=== PATIENT | female | born 1940 | race African-American/Black ===

== ENCOUNTER 2017-03-24 05:33 | Inpatient (IN) ==
[2017-03-17 11:29] LABS: Basophils % 0.7 % (0.0-0.8); Eosinophils # 0.2 10*3/uL (0.0-0.87); Eosinophils % 3.6 % (0.00-10.9); Hematocrit 40.8 VOL% (35.7-47.0); Hemoglobin 13.3 GM/DL (12.0-16.0); Immature Granulocytes % 0.4 %; Immature Granulocytes Absolute 0.02 #; Lymphocytes # 1.9 10*3/uL (1.4-4.0); Lymphocytes % 33.2 % (21.3-54.2); Mean Corpuscular HGB Conc 32.6 GM/DL (32-36); Mean Corpuscular Hemoglobin 27 PG (27-34); Mean Corpuscular Volume 82.8 FL (87-102); Monocytes # 0.4 10*3/uL (0.11-0.8); Monocytes % 7.9 % (1.7-12.7); Neutrophils % 54.2 % (38.7-73.9); Platelet Count 281 T/CUMM (130-400); Red Blood Count 4.93 MC/CUMM (3.8-5.5); Red Cell Distribution Width 15.5 % (9.3-17.3); White Blood Count 5.6 T/CUMM (4-12)
[2017-03-17 11:30] LABS: Apearance,Urine CLEAR (Clear); Bilirubin,Urine Negative (Negative); Blood, Urine Negative (Negative); Glucose,Urine (UA) Negative (Negative); Ketones,Urine Negative (Negative); Nitrite,Urine Negative (Negative); Protein,Urine Negative; RBC,Urine <1 /HPF (0-4); Urine Color Yellow (Yellow); Urine Specific Gravity 1.016 (1.001-1.035); Urine Urobilinogen < 2.0 EU/DL (0.2-1.0); WBC,Urine <1 /HPF (0-6)
[2017-03-17 11:39] LABS: PT Patient Result 10.7 SECS
[2017-03-17 12:03] LABS: Bilirubin,Total 1.2 MG/DL (0.2-1.0); Calcium 9.2 MG/DL (8.5-10.1); Osmolality,Calculated 282.7 MOS/KG (273-304); Total Protein 8.3 G/DL (6.4-8.3)
[2017-03-18 04:52] LABS: Immunoglobulin A (Chem) 245 MG/DL (70-400); Immunoglobulin G (Chem) 1980 MG/DL (700-1600); Immunoglobulin M (Chem) 66 MG/DL (40-230); Total Protein (Chem) 8.3 G/DL (6.4-8.3)
[2017-03-18 07:13] LABS: Albumin (SPE) 4.7 G/DL (3.2-5.3)
[2017-03-18 07:14] LABS: Albumin (SPE) Rel % 57.4 %; Alpha 1 (SPE) 0.2 G/DL (0.1-0.4); Alpha 1 (SPE) Rel % 2.3 %; Alpha 2 (SPE) 0.7 G/DL (0.4-1.0); Alpha 2 (SPE) Rel % 7.9 %; Beta (SPE) Rel % 12.4 %; Gamma (SPE) 1.7 G/DL (0.7-1.7)
[2017-03-24] MEDS ORDERED: VANCOMYCIN INJ 1,000 MG in SODIUM CHLORIDE 0.9% 250 ML IV ONE (06:00)
[2017-03-24] MEDS ORDERED: ceFAZolin 1,000 MG VIAL ONE (06:04)
[2017-03-24] MEDS ORDERED: VANCOMYCIN 1,000 MG VIAL ONE (06:04)
[2017-03-24] MEDS ORDERED: SODIUM CHLORIDE 0.9% 100 ML IV ONE (06:05)
[2017-03-24] MEDS ORDERED: TRANEXAMIC ACID 1,000 MG/10 ML VIAL IV ONE (06:27)
[2017-03-24] MEDS ORDERED: DIAZEPAM 5 MG TABLET ONE (06:29)
[2017-03-24] MEDS ORDERED: LACTATED RINGERS 1,000 ML IV SCH (06:30)
[2017-03-24] MEDS ORDERED: FAMOTIDINE 20 MG TABLET ONE (06:30)
[2017-03-24] MEDS ORDERED: FAMOTIDINE 20 MG TABLET PO ONE (06:32)
[2017-03-24] MEDS ORDERED: DIAZEPAM 5 MG TABLET PO ONE (06:32)
[2017-03-24] MEDS ORDERED: BUPIVACAINE 0.5% 50 ML VIAL ONE (06:36)
[2017-03-24] MEDS ORDERED: EPINEPHrine 1 MG/ML VIAL ONE (06:36)
[2017-03-24] MEDS ORDERED: methylPREDNISolone SOD SUC 125 MG/2 ML VIAL ONE (06:36)
[2017-03-24] MEDS ORDERED: MORPHINE 10 MG/1 ML VIAL ONE (06:36)
[2017-03-24] MEDS ORDERED: PROPOFOL 200 MG/20 ML VIAL IV ONE (07:01)
[2017-03-24] MEDS ORDERED: LIDOCAINE 1% 5 ML VIAL ONE (07:01)
[2017-03-24] MEDS ORDERED: ONDANSETRON 4 MG/2 ML VIAL ONE (07:01)
[2017-03-24] MEDS ORDERED: ZALEPLON 5 MG CAPSULE PO PRN (08:30)
[2017-03-24] MEDS ORDERED: MORPHINE 2 MG/1 ML SYRINGE IV PRN (08:30)
[2017-03-24] MEDS ORDERED: ONDANSETRON 4 MG/2 ML VIAL IV PRN (08:30)
[2017-03-24] MEDS ORDERED: MAGNESIUM HYDROXIDE SUSP 30 ML UDCUP PO PRN (08:30)
[2017-03-24] MEDS ORDERED: diphenhydrAMINE CAP 25 MG CAPSULE PO PRN (08:30)
[2017-03-24] MEDS ORDERED: ROPIVACAINE 0.5% 30 ML VIAL ONE (08:42)
[2017-03-24] MEDS ORDERED: fentaNYL 100 MCG/2 ML VIAL ONE (08:45)
[2017-03-24] MEDS ORDERED: PROMETHAZINE 25 MG/1 ML VIAL ONE (08:45)
[2017-03-24] MEDS ORDERED: MIDAZOLAM 2 MG/2 ML VIAL ONE (08:45)
[2017-03-24] MEDS ORDERED: ACETAMINOPHEN 1,000 MG/100 ML VIAL IV ONE (08:45)
[2017-03-24] MEDS: SODIUM CHLORIDE 0.9% 1,000 ML IV SCH ×3 (09:13→20:40)
--- NOTE | 2017-03-24 09:31 | XRay Report ---
XR knee 2V RT Indication: Joint replacement (right knee) Comparison: None Technique: Frontal and lateral views of the right knee Findings: Status post total right knee arthroplasty. No evidence of immediate hardware failure. Superficial skin dominik and surgical drain/s overlie the knee. Subcutaneous and joint space air noted which is likely postoperative. IMPRESSION: Status post total right knee arthroplasty. PROCEDURE INTERPRETED AT [facility] DEPARTMENT OF RADIOLOGY Final Report Signed by: Dr Rommel Meeks
[2017-03-24] MEDS: DOCUSATE SODIUM 100 MG CAPSULE PO SCH ×2 (10:10→21:49)
[2017-03-24] MEDS: TRIAMTERENE/HCTZ 37.5-25 MG CAPSULE PO SCH (10:10)
[2017-03-24] MEDS: FAMOTIDINE 20 MG TABLET PO SCH ×2 (10:10→21:50)
--- NOTE | 2017-03-24 10:16 | Pulmonology Consult Note ---
Assessment and Plan (1) Postoperative right total knee replaceme Status: Acute Assessment and plan: Not having any pain at this point. She is aware that she will need to ambulate early and often. Current Visit: Yes (2) Mild intermittent asthma Status: Acute Assessment and plan: No flareups. Not wheezing. Can use albuterol as needed. Current Visit: Yes (3) Degenerative arthritis Status: Acute Assessment and plan: Chronically on nonsteroidal anti-inflammatory drugs. Current Visit: Yes (4) Essential hypertension Status: Acute Assessment and plan: Blood pressure acceptable at 150/80. She is only on Dyazide for hypertension. Current Visit: Yes History of Present Illness Chief complaint: Postop right total knee replacement History of present illness: Ms. Garcia is a 76 year old female is normally followed by Dr. Hagan in the office. Dr. Hagan saw the patient about a week ago for preoperative clearance. Everything looked good. She has mild intermittent asthma and hypertension. No recent respiratory infection. She was taken to surgery earlier today and had the right knee replacement. At the present time she is responsive not having any pain. She denies any shortness of breath. Home Medications Medication Instructions Recorded Confirmed Type Acetaminophen Tab [Tylenol Tab] 500 mg PO BID PRN 03/17/17 03/24/17 History Albuterol Sulfate [Ventolin HFA] 2 puffs INH Q6H PRN 03/17/17 03/24/17 History Naproxen [Naproxen Tab] 500 mg PO BID 03/17/17 03/24/17 History Ranitidine Tab [Zantac Tab] 150 mg PO BID PRN 03/17/17 03/24/17 History Triamterene/Hydrochlorothiazid 1 tablet PO DAILY 03/17/17 03/24/17 History [Triamterene-Hctz 37.5-25 mg Cp] Allergies Allergy/AdvReac Type Severity Reaction Status Date / Time codeine Allergy Severe Vomiting Verified 03/24/17 06:12 12 point system: reviewed and no additional remarkable complaints except as stated - Constitutional Constitutional: Present: headache(s) - EENT Nose, mouth and throat: Present: nasal congestion Exam (Pulmonay) H&P - Constitutional Vitals: Period Temp Pulse Resp BP Sys/Novoa Pulse Ox Last 24 Hr 97.1 F-98.1 F 71-98 12-20 119-150/70-99 94-98 Exam: Vital signs normal. Blood pressure 150/80. Pupils react to light. Throat is clear. Neck supple no bruits. Chest is clear equal breath sounds. Heart normal rate and rhythm no murmurs no rubs no gallops. Abdomen soft nontender no masses. Bowel sounds present. Extremities no clubbing cyanosis edema. Calves nontender. Brace on right knee. Medical,Surgical,& Family Hx - Medical History Cardio: History of: Hypertension Neurology: No history of: Seizures HEENT: History of: Eye Problem (glasses), Dental Problems (upper denture) Respiratory: History of: Asthma Musculoskeletal: History of: Musculoskeletal Problems (oa) - Surgical History HEENT Surgeries: Surgical HX of: Eye Surgery (cataracts) Abdominal Surgeries: Surgical HX of: Cholecystectomy Reproductive Surgeries: Surgical HX of;: Section, Tubal Ligation Orthopedic Surgeries: Surgical HX of;: Total Knee Replacement (right knee) - Family History Family History: Reports;: Family Cancer (brother), Family Diabetes (brother), Family Hypertension (siblings), Family Stroke (brother) - Social History Smoking Status: Never smoker Frequency of Alcohol Use: Rarely Type of Drug Use: None Results - Labs CBC & BMP: 03/17/17 11:20 03/17/17 11:20 Lab Results: I have reviewed the past 24 hour labs
[2017-03-24] MEDS: ACETAMINOPHEN 500 MG TABLET PO SCH ×2 (11:55→18:11)
[2017-03-24] MEDS: KETOROLAC 15 MG/1 ML VIAL IV SCH ×2 (11:56→18:11)
[2017-03-24] MEDS ORDERED: ALBUTEROL 2.5 MG/3 ML NEB RESP TX PRN (13:00)
[2017-03-24] MEDS: ceFAZolin 2,000 MG in PREMIX 1 EACH IV SCH ×2 (15:21→23:41)
--- NOTE | 2017-03-24 17:10 | Orthopedic Progress Note ---
Assessment and Plan (1) Postoperative right total knee replaceme Status: Acute Assessment and plan: Routine perioperative antibiotics DVT prophylaxis Therapy twice daily beginning tomorrow Discharge planning Current Visit: Yes Orthopedics - Subjective Interval history: Patient is sitting at the bedside status post right total knee arthroplasty. She has no complaints, her pain is controlled. On exam, her dressing is clean and dry, her Hemovac is in place, she can wiggle her toes, she has 1+ dorsalis pedis pulse. Exam - Constitutional Vitals: Period Temp Pulse Resp BP Sys/Novoa Pulse Ox Last 24 Hr 97.1 F-98.9 F 67-98 12-20 119-153/70-99 91-98 Results - Labs CBC & BMP: 03/17/17 11:20 03/17/17 11:20
[2017-03-25] MEDS: ACETAMINOPHEN 500 MG TABLET PO SCH ×2 (01:02→07:10)
[2017-03-25] MEDS: KETOROLAC 15 MG/1 ML VIAL IV SCH ×2 (01:05→07:10)
[2017-03-25] MEDS: SODIUM CHLORIDE 0.9% 1,000 ML IV SCH (04:12)
[2017-03-25 06:25] LABS: Basophils % 0.3 % (0.0-0.8); Hematocrit 31.6 VOL% (35.7-47.0); Hemoglobin 10.7 GM/DL (12.0-16.0); Immature Granulocytes % 0.6 %; Immature Granulocytes Absolute 0.05 #; Lymphocytes % 11.5 % (21.3-54.2); Mean Corpuscular HGB Conc 33.9 GM/DL (32-36); Mean Corpuscular Hemoglobin 28 PG (27-34); Mean Corpuscular Volume 82.9 FL (87-102); Mean Platelet Volume 11.2 FL (9.6-12.0); Monocytes # 0.7 10*3/uL (0.11-0.8); Monocytes % 8.2 % (1.7-12.7); Neutrophils % 79.4 % (38.7-73.9); Platelet Count 224 T/CUMM (130-400); Red Blood Count 3.81 MC/CUMM (3.8-5.5); Red Cell Distribution Width 15.4 % (9.3-17.3); White Blood Count 8.8 T/CUMM (4-12)
[2017-03-25 06:54] LABS: Calcium 8.1 MG/DL (8.5-10.1); Potassium 3.7 MMOL/L (3.5-5.1)
[2017-03-25] MEDS: ENOXAPARIN 40 MG/0.4 ML SYRINGE SUBCUT SCH (07:09)
--- NOTE | 2017-03-25 08:08 | Orthopedic Progress Note ---
Assessment and Plan (1) Postoperative right total knee replaceme Status: Acute Assessment and plan: DVT prophylaxis Therapy twice daily Discharge planning Current Visit: Yes Orthopedics - Subjective Interval history: Patient has no complaints this morning, she states she is ready to get out of bed with therapy. On exam dressings clean and dry, she is neurovascularly intact. Exam - Constitutional Vitals: Period Temp Pulse Resp BP Sys/Novoa Pulse Ox Last 24 Hr 97.1 F-98.9 F 67-85 12-20 110-153/70-87 91-98 Results - Labs CBC & BMP: 03/25/17 05:33 03/25/17 05:33
[2017-03-25] MEDS ORDERED: ACETAMINOPHEN 325 MG TABLET PO PRN (08:31)
[2017-03-25] MEDS: DOCUSATE SODIUM 100 MG CAPSULE PO SCH ×2 (09:15→20:40)
[2017-03-25] MEDS: FAMOTIDINE 20 MG TABLET PO SCH ×2 (09:16→20:41)
[2017-03-25] MEDS: TRIAMTERENE/HCTZ 37.5-25 MG CAPSULE PO SCH (09:16)
--- NOTE | 2017-03-25 09:50 | Pulmonology Progress Note ---
Pulmonary - PN: Subj Interval history: This 76-year-old lady had a right total knee replacement yesterday. She has mild intermittent asthma but is not having any problems with that. Her blood pressure is doing well. She ambulated some yesterday and this morning. Exam (Progress Note) - Constitutional Vitals: Period Temp Pulse Resp BP Sys/Novoa Pulse Ox Last 24 Hr 97.1 F-98.9 F 67-85 16-19 110-153/70-87 91-96 Exam: Patient is alert and oriented. Vital signs normal. Pupils react to light. Throat is clear. Neck supple no bruits. Chest is clear. No wheezing. Heart normal rate and rhythm no murmurs. Abdomen soft nontender no masses. Bowel sounds present. Extremities no clubbing cyanosis or edema. Calves nontender. Brace on right knee. Results - Labs CBC & BMP: 03/25/17 05:33 03/25/17 05:33 Lab Results: I have reviewed the past 24 hour labs Assessment and Plan (1) Postoperative right total knee replaceme Status: Acute Assessment and plan: Not having any pain at this point. She is aware that she will need to ambulate early and often. 03/25/2017 patient is ambulating with physical therapy. Pain is managed well. Current Visit: Yes (2) Mild intermittent asthma Status: Acute Assessment and plan: No flareups. Not wheezing. Can use albuterol as needed. 03/25/2017 just on albuterol as needed. No active bronchospasm. Current Visit: Yes (3) Degenerative arthritis Status: Acute Assessment and plan: Chronically on nonsteroidal anti-inflammatory drugs. 03/25/2017 continuing nonsteroidal anti-inflammatory drugs. Current Visit: Yes (4) Essential hypertension Status: Acute Assessment and plan: Blood pressure acceptable at 150/80. She is only on Dyazide for hypertension. 03/25/2017 systolic blood pressure around 120 on Dyazide. Current Visit: Yes
--- NOTE | 2017-03-25 11:19 | Pathology Report from [facility] ---
[facility] [place] ACCESSION # : [id number] PATIENT NAME : Deborah Rosen ORDERING DR : Elias Luke MD CLINICAL HX: RT knee osteoarthritis POST-OP DX: Same SPECIMEN INFO: RT knee bone & tissue GROSS DESCRIPTION: Received in formalin labeled DEBORAH ROSEN is an aggregate of bone, soft tissue and cartilage measuring 13.0 x 2.5 cm. The articular surfaces are focally degenerative with areas of subchondral eburnation seen. Also seen is a white loose body measuring 1.3 x 1.0 cm. Java Project Manager sections are submitted in one cassette. DIAGNOSIS FOR DEBORAH ROSEN: Fragments of right knee joint showing changes of degenerative joint disease/ osteoarthritis.Loose body. COLLECTED DATE: 03/24/2017 [facility] REPORT DATE: 03/25/2017 ELECTRONICALLY SIGNED BY: Fitz Villarreal M.D. 03/25/2017 - 9:32:10 [facility] SYSTEMDonald
[2017-03-25] MEDS ORDERED: CELECOXIB 200 MG CAPSULE PO SCH (18:00)
[2017-03-26 05:17] LABS: Basophils # 0.1 10*3/uL (0.0-0.2); Basophils % 0.8 % (0.0-0.8); Eosinophils # 0.3 10*3/uL (0.0-0.87); Eosinophils % 3.9 % (0.00-10.9); Hematocrit 30.2 VOL% (35.7-47.0); Hemoglobin 9.9 GM/DL (12.0-16.0); Immature Granulocytes % 0.4 %; Immature Granulocytes Absolute 0.03 #; Lymphocytes # 1.4 10*3/uL (1.4-4.0); Lymphocytes % 18.7 % (21.3-54.2); Mean Corpuscular HGB Conc 32.8 GM/DL (32-36); Mean Corpuscular Hemoglobin 27 PG (27-34); Mean Corpuscular Volume 83.4 FL (87-102); Mean Platelet Volume 11.3 FL (9.6-12.0); Monocytes # 0.7 10*3/uL (0.11-0.8); Neutrophils # 5.1 10*3/uL (1.4-7.4); Neutrophils % 67.2 % (38.7-73.9); Platelet Count 212 T/CUMM (130-400); Red Blood Count 3.62 MC/CUMM (3.8-5.5); Red Cell Distribution Width 15.5 % (9.3-17.3); White Blood Count 7.6 T/CUMM (4-12)
[2017-03-26] MEDS: ENOXAPARIN 40 MG/0.4 ML SYRINGE SUBCUT SCH (06:01)
--- NOTE | 2017-03-26 07:14 | Discharge Summary ---
Hospital Course - Hospital Course Hospital Course: 76-year-old female admitted hospital following total knee arthroplasty. She tolerated the procedure well and was transferred to the floor in stable condition postoperatively. She she received routine antibiotics and thromboprophylaxis. She was seen by physical therapy twice daily. When she was ambulating safely she was subsequently discharged home. Time of discharge her wounds clean and dry she is neurovascularly intact. Diagnosis - Discharge Diagnosis (1) Postoperative right total knee replaceme Status: Acute Specialty Discharge - Follow Up or Referrals Follow up with: Elisa Luke MD [Physician] - Discharge Plan - Discharge Data Disposition: Home Health Service Condition at Discharge: Stable Discharge Diet: advance to your usual diet Activity: ambulate only with your walker Hygiene: may shower Weight Bearing at Discharge: weight bear as tolerated Driving: not until seen by doctor Contact your physician if you experience:: fever over 101, Difficulty voiding, Redness or swelling, Nausea/Vomiting, Shortness of breath, Bleeding, pain uncontrolled by pain medications Wound / Dressing Care Instructions: Daily dressing change. Okay to shower, no tub soaks. Kylah out 04/07/2017 - Discharge Medications New Docusate Sodium Cap [Colace Cap] 100 mg PO BID #30 capsule HYDROcodone/ACETAMIN 7.5-325 [Wray 7.5-325] 1 - 2 tablet PO Q4H PRN #60 tablet PRN Reason: Pain Moderate (4-7) Aspirin EC Tab 325 mg PO DAILY #30 tablet Continue Triamterene/Hydrochlorothiazid [Triamterene-Hctz 37.5-25 mg Cp] 1 tablet PO DAILY Albuterol Sulfate [Ventolin HFA] 2 puffs INH Q6H PRN PRN Reason: Shortness Of Breath/Wheezing Naproxen [Naproxen Tab] 500 mg PO BID Acetaminophen Tab [Tylenol Tab] 500 mg PO BID PRN PRN Reason: Pain Ranitidine Tab [Zantac Tab] 150 mg PO BID PRN PRN Reason: Reflux - Follow Up or Referral Follow Up: Elias Luke MD [Physician] - (2-3 weeks) - Forms/Instructions Instructions: Total Knee Replacement (DC) Additional Discharge Instructions: Weight-bear as tolerated, total knee protocol Exam - Constitutional Vitals: Period Temp Pulse Resp BP Sys/Novoa Pulse Ox Last 24 Hr 97.1 F-99.0 F 77-92 16-18 112-141/65-74 89-94 Discharge Results Procedures and tests throughout hospitalization: Pending Orders 03/17/17 11:20 Total Protein 24 Hr Urine Routine 03/27/17 04:00 Comp Blood Count Auto Diff IN AM Labs on day of discharge: Labs from last 24 hours 03/26/17 04:52 WBC 7.6 RBC 3.62 L Hgb 9.9 L Hct 30.2 L MCV 83.4 L MCH 27 MCHC 32.8 RDW 15.5 Plt Count 212 MPV 11.3 Neut % (Auto) 67.2 Lymph % (Auto) 18.7 L [place] % (Auto) 9.0 Eos % (Auto) 3.9 Baso % (Auto) 0.8 Neut # (Auto) 5.1 Lymph # (Auto) 1.4 [place] # (Auto) 0.7 Eos # (Auto) 0.3 Baso # (Auto) 0.1 Immature Gran % 0.4 Nucleated RBC % 0.0 Immature Gran # 0.03 Nucleated RBCs # 0.00 DS: Provider Date of admission: 03/24/17 05:33 Primary care physician: Klely Hagan MD Attending physician on admission: Elias Luke MD Consults: 03/24/17 08:30 Consult to Case Mgmt/Social Srvs [CONS] Routine Reason for Case Mgmt/Social Srvs: Rehab Home Health Equipment Consult Comment: Bedside [place], Wild rm 324 before D/C'd home; Pt 5ft 6in 207lbs. Consult to Occupational Therapy [CONS] Routine Reason for Occupational Therapy: Evaluate and Treat Start Therapy: Tomorrow Consult Comment: ADL's Consult to Physical Therapy [CONS] Routine Reason for Physical Therapy: Evaluate and Treat Gait Training Start Therapy: Today 03/24/17 08:31 Consult to Physician [CONS] Routine Comment: eugene solis Consulting Provider: David Rodriguez Consulting Provider Notified: Yes When should Consulting Provider be notified: Now Person Notified: bill crockett Date Notified: 03/24/17 Time Notified: 09:46 03/24/17 09:55 Consult to Pastoral Services [CONS] Routine Comment: Pastoral Screen: Request Wire Puller Visit Pastoral Screen Source of Request: Patient 03/25/17 08:18 Consult to Physical Therapy [CONS] Routine Reason for Physical Therapy: Other Consult Comment: Please bring Pt a Standard Walker for home before D/C home. Discharging clinician: Elias Luke MD
--- NOTE | 2017-03-26 09:15 | Pulmonology Progress Note ---
Pulmonary - PN: Subj Interval history: This 76-year-old lady had a right total knee replacement yesterday. She has mild intermittent asthma but is not having any problems with that. Her blood pressure is doing well. She ambulated some yesterday and this morning. 03/26/2017 patient in physical therapy. She did have some nausea this morning after getting pain medications. Blood pressure has been well controlled. She is ready for discharge for physical therapy at home. Exam (Progress Note) - Constitutional Vitals: Period Temp Pulse Resp BP Sys/Novoa Pulse Ox Last 24 Hr 96.8 F-99.0 F 77-92 16-18 105-141/63-74 89-96 Exam: Patient is alert and oriented. Vital signs normal. Pupils react to light. Throat is clear. Neck supple no bruits. Chest is clear. No wheezing. Heart normal rate and rhythm no murmurs. Abdomen soft nontender no masses. Bowel sounds present. Extremities no clubbing cyanosis or edema. Calves nontender. Brace on right knee. Results - Labs CBC & BMP: 03/26/17 04:52 03/25/17 05:33 Lab Results: I have reviewed the past 24 hour labs Assessment and Plan (1) Postoperative right total knee replaceme Status: Acute Assessment and plan: Not having any pain at this point. She is aware that she will need to ambulate early and often. 03/25/2017 patient is ambulating with physical therapy. Pain is managed well. 03/26/2017 doing well with physical therapy. She is having some pain and nausea is probably resulting from the pain medications. Current Visit: Yes (2) Mild intermittent asthma Status: Acute Assessment and plan: No flareups. Not wheezing. Can use albuterol as needed. 03/25/2017 just on albuterol as needed. No active bronchospasm. 03/26/2017 no bronchospasm. Current Visit: Yes (3) Degenerative arthritis Status: Acute Assessment and plan: Chronically on nonsteroidal anti-inflammatory drugs. 03/25/2017 continuing nonsteroidal anti-inflammatory drugs. Current Visit: Yes (4) Essential hypertension Status: Acute Assessment and plan: Blood pressure acceptable at 150/80. She is only on Dyazide for hypertension. 03/25/2017 systolic blood pressure around 120 on Dyazide. 03/26/2017 blood pressure well controlled. Stay on Dyazide. Current Visit: Yes Specialty Discharge - Follow Up or Referrals Follow up with: Elias Luke MD [Physician] - (2-3 weeks)
[2017-03-26 12:02] VITALS: BP 131/81
[2017-03-26] MEDS: DOCUSATE SODIUM 100 MG CAPSULE PO SCH (12:19)
[2017-03-26] MEDS: TRIAMTERENE/HCTZ 37.5-25 MG CAPSULE PO SCH (12:19)
[2017-03-26] MEDS: FAMOTIDINE 20 MG TABLET PO SCH (12:19)
== END 2017-03-26 14:10 | disposition home health service (06) | DRG 470 ==
LOC: N.SDSINP 05:33 → N.3E 09:30
PROVIDERS: ADMIT Orthopaedic Surgery; ATTEND Orthopaedic Surgery

== ENCOUNTER 2018-01-12 05:26 | Inpatient (IN) ==
[2018-01-07 10:15] LABS: Basophils # 0.1 10*3/uL (0.0-0.2); Eosinophils # 0.1 10*3/uL (0.0-0.87); Eosinophils % 2.8 % (0.00-10.9); Hematocrit 38.5 VOL% (35.7-47.0); Hemoglobin 12.2 GM/DL (12.0-16.0); Immature Granulocytes % 0.4 %; Immature Granulocytes Absolute 0.02 #; Lymphocytes # 1.4 10*3/uL (1.4-4.0); Lymphocytes % 27.7 % (21.3-54.2); Mean Corpuscular HGB Conc 31.7 GM/DL (32-36); Mean Corpuscular Hemoglobin 26 PG (27-34); Mean Corpuscular Volume 83.2 FL (87-102); Monocytes # 0.5 10*3/uL (0.11-0.8); Monocytes % 10.1 % (1.7-12.7); Neutrophils # 2.9 10*3/uL (1.4-7.4); Platelet Count 264 T/CUMM (130-400); Red Blood Count 4.63 MC/CUMM (3.8-5.5); Red Cell Distribution Width 16.3 % (9.3-17.3); White Blood Count 4.9 T/CUMM (4-12)
[2018-01-07 10:29] LABS: Apearance,Urine CLEAR (Clear); Bilirubin,Urine Negative (Negative); Blood, Urine Negative (Negative); Glucose,Urine (UA) Negative (Negative); Hyaline Casts,Urine 1 /LPF (0-3); Ketones,Urine Negative (Negative); Mucus,Urine Occasional /LPF (Occasional); Nitrite,Urine Negative (Negative); Protein,Urine Negative; RBC,Urine <1 /HPF (0-4); Urine Color Yellow (Yellow); WBC,Urine <1 /HPF (0-6)
[2018-01-07 10:31] LABS: PT Patient Result 10.4 SECS; Partial Thromboplastin Time 26.7 SECS (0-40)
[2018-01-07 10:45] LABS: Albumin 3.6 G/DL (3.4-5.0); Bilirubin,Total 0.9 MG/DL (0.2-1.0); Calcium 9.3 MG/DL (8.5-10.1); Osmolality,Calculated 286.4 MOS/KG (273-304); Total Protein 7.8 G/DL (6.4-8.3)
[2018-01-12] MEDS ORDERED: IPRATROPIUM 500 MCG/2.5 ML NEB RESP TX ONE (06:00)
[2018-01-12] MEDS ORDERED: ceFAZolin 1,000 MG in SYRINGE 1 EACH IV ONE (06:00)
[2018-01-12] MEDS ORDERED: FAMOTIDINE 20 MG TABLET PO ONE (06:00)
[2018-01-12] MEDS ORDERED: ALBUTEROL/IPRATROPIUM 3 ML NEB RESP TX ONE (06:00)
[2018-01-12] MEDS ORDERED: VANCOMYCIN INJ 1,000 MG in SODIUM CHLORIDE 0.9% 250 ML IV ONE (06:00)
[2018-01-12] MEDS ORDERED: DIAZEPAM 5 MG TABLET PO ONE (06:00)
[2018-01-12] MEDS ORDERED: VANCOMYCIN 1,000 MG VIAL ONE (06:04)
[2018-01-12] MEDS ORDERED: FAMOTIDINE 20 MG TABLET ONE (06:18)
[2018-01-12] MEDS ORDERED: DIAZEPAM 5 MG TABLET ONE (06:18)
[2018-01-12] MEDS ORDERED: SCOPOLAMINE 1.5 MG PATCH TRANSDERM ONE ×2 (06:19→06:32)
[2018-01-12] MEDS ORDERED: TRANEXAMIC ACID 1,000 MG/10 ML VIAL IV ONE ×2 (06:30→06:41)
[2018-01-12] MEDS ORDERED: BACITRACIN OINT 0.9 GM PACK TOP ONE (06:30)
[2018-01-12] MEDS ORDERED: LACTATED RINGERS 1,000 ML IV SCH (07:00)
[2018-01-12] MEDS ORDERED: MAGNESIUM HYDROXIDE SUSP 30 ML UDCUP PO PRN (07:13)
[2018-01-12] MEDS ORDERED: ONDANSETRON 4 MG/2 ML VIAL IV PRN (07:13)
[2018-01-12] MEDS ORDERED: ZALEPLON 5 MG CAPSULE PO PRN (07:13)
[2018-01-12] MEDS ORDERED: diphenhydrAMINE CAP 25 MG CAPSULE PO PRN (07:13)
[2018-01-12] MEDS ORDERED: MORPHINE 2 MG/1 ML SYRINGE IV PRN ×2 (07:13)
[2018-01-12] MEDS ORDERED: oxyCODONE IR 5 MG TABLET PO PRN ×2 (07:13)
[2018-01-12] MEDS ORDERED: KETOROLAC 30 MG/1 ML VIAL IV SCH (07:30)
[2018-01-12] MEDS ORDERED: ROPIVACAINE 0.5% 30 ML VIAL ONE (08:01)
[2018-01-12] MEDS ORDERED: ALBUTEROL 2.5 MG/3 ML NEB RESP TX PRN (08:30)
[2018-01-12] MEDS ORDERED: ONDANSETRON 4 MG/2 ML VIAL ONE ×2 (08:50→08:55)
[2018-01-12] MEDS ORDERED: PROPOFOL 200 MG/20 ML VIAL IV ONE (08:54)
[2018-01-12] MEDS ORDERED: DEXAMETHASONE 10 MG/1 ML VIAL ONE (08:55)
[2018-01-12] MEDS ORDERED: fentaNYL 100 MCG/2 ML VIAL ONE (08:55)
[2018-01-12] MEDS ORDERED: ROCURONIUM 100 MG/10 ML VIAL IV ONE (08:55)
[2018-01-12] MEDS ORDERED: SEVOFLURANE 1 UNIT/15 MINUTE INH ONE (08:55)
[2018-01-12] MEDS ORDERED: GLYCOPYRROLATE 0.4 MG/2 ML VIAL ONE (08:55)
[2018-01-12] MEDS ORDERED: NEOSTIGMINE 10 MG/10 ML VIAL ONE (08:55)
[2018-01-12] MEDS ORDERED: ACETAMINOPHEN 1,000 MG/100 ML VIAL IV ONE (08:55)
[2018-01-12] MEDS ORDERED: HYDROmorphone 2 MG/1 ML VIAL ONE (09:03)
[2018-01-12] MEDS: HYDROmorphone 2 MG/1 ML VIAL IV PRN ×2 (09:05→09:15)
[2018-01-12] MEDS: LACTATED RINGERS 1,000 ML IV SCH ×2 (09:10→17:08)
[2018-01-12] MEDS: FAMOTIDINE 20 MG TABLET PO SCH (10:07)
[2018-01-12] MEDS: TRIAMTERENE/HCTZ 37.5-25 MG CAPSULE PO SCH (10:07)
[2018-01-12] MEDS: DOCUSATE SODIUM 100 MG CAPSULE PO SCH ×2 (10:07→21:49)
[2018-01-12] MEDS: KETOROLAC 30 MG/1 ML VIAL IV SCH ×3 (11:31→23:14)
[2018-01-12] MEDS: ceFAZolin 2,000 MG in PREMIX 1 EACH IV SCH ×2 (11:35→21:42)
[2018-01-12] MEDS ORDERED: PROMETHAZINE 25 MG/1 ML VIAL IM PRN (12:06)
[2018-01-12] MEDS: ACETAMINOPHEN 500 MG TABLET PO SCH ×3 (12:17→23:13)
[2018-01-12] MEDS ORDERED: ceFAZolin 2,000 MG in PREMIX 1 EACH IV SCH (21:30)
[2018-01-13] MEDS ORDERED: FONDAPARINUX 2.5 MG/0.5 ML SYRINGE SUBCUT SCH (01:15)
[2018-01-13] MEDS: LACTATED RINGERS 1,000 ML IV SCH ×2 (02:31→04:08)
[2018-01-13 04:53] LABS: White Blood Count 8.4 T/CUMM (4-12)
[2018-01-13 04:54] LABS: Basophils % 0.2 % (0.0-0.8); Hematocrit 28.8 VOL% (35.7-47.0); Hemoglobin 9.7 GM/DL (12.0-16.0); Immature Granulocytes % 0.6 %; Immature Granulocytes Absolute 0.05 #; Lymphocytes # 1.1 10*3/uL (1.4-4.0); Lymphocytes % 13.3 % (21.3-54.2); Mean Corpuscular HGB Conc 33.7 GM/DL (32-36); Mean Corpuscular Hemoglobin 27 PG (27-34); Mean Corpuscular Volume 80.7 FL (87-102); Mean Platelet Volume 11.1 FL (9.6-12.0); Monocytes # 1.1 10*3/uL (0.11-0.8); Monocytes % 13.1 % (1.7-12.7); Neutrophils # 6.1 10*3/uL (1.4-7.4); Neutrophils % 72.8 % (38.7-73.9); Platelet Count 194 T/CUMM (130-400); Red Blood Count 3.57 MC/CUMM (3.8-5.5); Red Cell Distribution Width 16.3 % (9.3-17.3)
[2018-01-13] MEDS: KETOROLAC 30 MG/1 ML VIAL IV SCH (05:15)
[2018-01-13] MEDS: ACETAMINOPHEN 500 MG TABLET PO SCH (05:15)
[2018-01-13 05:23] LABS: Calcium 8.3 MG/DL (8.5-10.1); Osmolality,Calculated 286.4 MOS/KG (273-304); Potassium 3.8 MMOL/L (3.5-5.1)
[2018-01-13] MEDS: FAMOTIDINE 20 MG TABLET PO SCH (10:58)
[2018-01-13] MEDS: DOCUSATE SODIUM 100 MG CAPSULE PO SCH (11:00)
[2018-01-13] MEDS: TRIAMTERENE/HCTZ 37.5-25 MG CAPSULE PO SCH (11:00)
[2018-01-13 11:38] VITALS: BP 117/71
== END 2018-01-13 12:55 | disposition home health service (06) | DRG 470 ==
LOC: N.OR 05:26 → N.SDSINP 05:27 → N.3E 07:14
PROVIDERS: ADMIT Orthopaedic Surgery; ATTEND Orthopaedic Surgery

== ENCOUNTER 2021-01-14 00:50 | Observation (INO) ==
[2021-01-14] MEDS ORDERED: hydrALAZINE 20 MG/1 ML VIAL IV STA (02:17)
[2021-01-14 02:53] LABS: Basophils # 0.1 10*3/uL (0.0-0.2); Basophils % 0.9 % (0.0-0.8); Eosinophils # 0.1 10*3/uL (0.0-0.87); Eosinophils % 0.9 % (0.00-10.9); Hematocrit 40.8 VOL% (35.7-47.0); Hemoglobin 13.3 GM/DL (12.0-16.0); Immature Granulocytes % 0.4 %; Immature Granulocytes Absolute 0.03 #; Lymphocytes # 2.2 10*3/uL (1.4-4.0); Lymphocytes % 30.4 % (21.3-54.2); Mean Corpuscular HGB Conc 32.6 GM/DL (32-36); Mean Corpuscular Volume 82.3 FL (87-102); Mean Platelet Volume 10.3 FL (9.6-12.0); Monocytes % 9.5 % (1.7-12.7); Neutrophils % 57.9 % (38.7-73.9); Platelet Count 285 T/CUMM (130-400); Red Blood Count 4.96 MC/CUMM (3.8-5.5); Red Cell Distribution Width 18.5 % (9.3-17.3); White Blood Count 7.4 T/CUMM (4-12)
[2021-01-14 03:04] LABS: Alanine Aminotransferase 20 U/L (13-56); Albumin 3.8 G/DL (3.4-5.0); Alkaline Phosphatase 61 U/L (45-117); Aspartate Amino Transferase 16 U/L (0-37); Blood Urea Nitrogen 17 MG/DL (7-18); Carbon Dioxide 26 MMOL/L (21-32); Estimated Glom Filtration Rate 57 ML/MIN; Glucose 108 MG/DL (74-106); Osmolality,Calculated 268.4 MOS/KG (273-304); Potassium 3.7 MMOL/L (3.5-5.1); Sodium 133 MMOL/L (136-145); Troponin I 0.019 NG/ML (0.00-0.045)
[2021-01-14] MEDS ORDERED: ASPIRIN EC 325 MG TABLET PO STA (03:36)
[2021-01-14] MEDS ORDERED: ENOXAPARIN 100 MG/ML SYRINGE SUBCUT STA (03:36)
[2021-01-14] MEDS ORDERED: DEXTROSE 50% 25 GM/50 ML VIAL IV PRN (05:21)
[2021-01-14] MEDS ORDERED: GLUCAGON 1 MG VIAL IM PRN (05:21)
[2021-01-14] MEDS ORDERED: hydrALAZINE 20 MG/1 ML VIAL IV PRN (05:21)
[2021-01-14] MEDS ORDERED: ALBUTEROL 0.63 MG/3 ML NEB RESP TX PRN (05:27)
[2021-01-14 05:33] LABS: Hypochromasia 1+; Microcytosis 1+
[2021-01-14 05:34] LABS: Ovalocytes Few; Platelet Estimate Normal
[2021-01-14] MEDS: ACETAMINOPHEN 325 MG TABLET PO PRN (09:35)
[2021-01-14] MEDS: carvediloL 6.25 MG TABLET PO SCH ×2 (09:35→16:33)
[2021-01-14] MEDS: ASPIRIN EC 81 MG TABLET PO SCH (09:41)
[2021-01-14] MEDS: FERROUS SULFATE 325 MG TABLET PO SCH ×2 (09:42→16:33)
[2021-01-14] MEDS ORDERED: SERTRALINE 25 MG TABLET PO SCH (21:00)
[2021-01-14] MEDS ORDERED: CALCIUM CARBONATE CHEW 500 MG TABLET PO PRN (23:26)
[2021-01-14] MEDS ORDERED: SERTRALINE 25 MG TABLET PO ONE (23:28)
[2021-01-15] MEDS: ACETAMINOPHEN 325 MG TABLET PO PRN (00:41)
[2021-01-15] MEDS: ONDANSETRON 4 MG/2 ML VIAL IV PRN ×2 (02:11→06:15)
[2021-01-15 06:56] LABS: Basophils # 0.1 10*3/uL (0.0-0.2); Basophils % 1.6 % (0.0-0.8); Eosinophils # 0.1 10*3/uL (0.0-0.87); Eosinophils % 1.9 % (0.00-10.9); Hematocrit 42.3 VOL% (35.7-47.0); Hemoglobin 13.9 GM/DL (12.0-16.0); Immature Granulocytes % 0.2 %; Immature Granulocytes Absolute 0.01 #; Lymphocytes % 35.4 % (21.3-54.2); Mean Corpuscular HGB Conc 32.9 GM/DL (32-36); Mean Corpuscular Volume 80.7 FL (87-102); Mean Platelet Volume 10.7 FL (9.6-12.0); Monocytes % 10.2 % (1.7-12.7); Neutrophils % 50.7 % (38.7-73.9); Platelet Count 319 T/CUMM (130-400); Red Blood Count 5.24 MC/CUMM (3.8-5.5); Red Cell Distribution Width 19.2 % (9.3-17.3); White Blood Count 5.7 T/CUMM (4-12)
[2021-01-15 07:24] LABS: Calcium 8.9 MG/DL (8.5-10.1); Osmolality,Calculated 260.8 MOS/KG (273-304); Potassium 3.1 MMOL/L (3.5-5.1); Risk Ratio 3.67; Thyroid Stimulating Hormone 2.27 uIU/ml (0.358-3.74); VLDL CHOLESTEROL 15.8 MG/DL
[2021-01-15] MEDS ORDERED: POTASSIUM CHLORIDE 20 MEQ TABLET PO ONE (08:17)
[2021-01-15] MEDS: ENOXAPARIN 40 MG/0.4 ML SYRINGE SUBCUT SCH (09:05)
[2021-01-15] MEDS: ASPIRIN EC 81 MG TABLET PO SCH (09:05)
[2021-01-15] MEDS ORDERED: carvediloL 6.25 MG TABLET PO ONE (09:13)
[2021-01-15] MEDS: FERROUS SULFATE 325 MG TABLET PO SCH ×2 (09:26→09:38)
[2021-01-15] MEDS: carvediloL 6.25 MG TABLET PO SCH (09:31)
[2021-01-15] MEDS: diphenhydrAMINE CAP 25 MG CAPSULE PO PRN ×2 (09:31→22:08)
[2021-01-15] MEDS ORDERED: carvediloL 12.5 MG TABLET PO SCH (12:00)
[2021-01-15] MEDS: carvediloL 12.5 MG TABLET PO SCH ×2 (15:22→22:06)
[2021-01-15] MEDS ORDERED: SERTRALINE 50 MG TABLET PO SCH (21:00)
[2021-01-16 05:18] LABS: Basophils # 0.1 10*3/uL (0.0-0.2); Basophils % 1.2 % (0.0-0.8); Eosinophils # 0.1 10*3/uL (0.0-0.87); Eosinophils % 1.8 % (0.00-10.9); Hemoglobin 13.2 GM/DL (12.0-16.0); Immature Granulocytes % 0.2 %; Immature Granulocytes Absolute 0.01 #; Lymphocytes # 2.1 10*3/uL (1.4-4.0); Lymphocytes % 42.4 % (21.3-54.2); Mean Corpuscular HGB Conc 33.8 GM/DL (32-36); Mean Corpuscular Volume 81.3 FL (87-102); Mean Platelet Volume 10.1 FL (9.6-12.0); Monocytes % 12.4 % (1.7-12.7); Platelet Count 253 T/CUMM (130-400); Red Cell Distribution Width 18.8 % (9.3-17.3)
[2021-01-16 05:40] LABS: Calcium 8.9 MG/DL (8.5-10.1); Osmolality,Calculated 265.4 MOS/KG (273-304); Potassium 3.8 MMOL/L (3.5-5.1)
[2021-01-16] MEDS: carvediloL 12.5 MG TABLET PO SCH (06:46)
[2021-01-16] MEDS: ASPIRIN EC 81 MG TABLET PO SCH (08:49)
[2021-01-16] MEDS: FERROUS SULFATE 325 MG TABLET PO SCH (08:51)
[2021-01-16] MEDS: ENOXAPARIN 40 MG/0.4 ML SYRINGE SUBCUT SCH (10:12)
[2021-01-16 13:24] VITALS: BP 123/78
== END 2021-01-16 13:38 | disposition home or self-care (01) ==
LOC: SUATTDRO → N.EDINP 00:50 → N.ED 00:50 → N.EDINP 07:55 → N.TELEN 07:56
PROVIDERS: ADMIT Internal Medicine Geriatric Medicine; ATTEND Internal Medicine Geriatric Medicine

== ENCOUNTER 2022-07-15 19:20 | Observation (INO) ==
[2022-07-15 21:12] LABS: Basophils % 0.6 % (0.0-0.8); Hematocrit 44.6 VOL% (35.7-47.0); Hemoglobin 14.8 GM/DL (12.0-16.0); Immature Granulocytes % 0.4 %; Immature Granulocytes Absolute 0.03 #; Lymphocytes % 14.7 % (21.3-54.2); Mean Corpuscular HGB Conc 33.2 GM/DL (32-36); Mean Corpuscular Volume 90.1 FL (87-102); Mean Platelet Volume 10.2 FL (9.6-12.0); Monocytes # 0.2 10*3/uL (0.11-0.8); Monocytes % 2.2 % (1.7-12.7); Neutrophils % 82.1 % (38.7-73.9); Platelet Count 267 T/CUMM (130-400); Red Blood Count 4.95 MC/CUMM (3.8-5.5); Red Cell Distribution Width 13.8 % (9.3-17.3); White Blood Count 6.9 T/CUMM (4-12)
[2022-07-15] MEDS ORDERED: SODIUM CHLORIDE 0.9% 1,000 ML IV STA (21:15)
[2022-07-15 21:38] LABS: Albumin 3.7 G/DL (3.4-5.0); Calcium 9.5 MG/DL (8.5-10.1); Osmolality,Calculated 281.4 MOS/KG (273-304); Potassium 3.8 MMOL/L (3.5-5.1); Total Protein 7.8 G/DL (6.4-8.2)
[2022-07-15] MEDS ORDERED: ACETAMINOPHEN 325 MG TABLET PO PRN (22:09)
[2022-07-15] MEDS ORDERED: ENOXAPARIN 30 MG/0.3 ML SYRINGE SUBCUT STA (22:13)
[2022-07-15] MEDS ORDERED: ASPIRIN EC 325 MG TABLET PO STA ×2 (22:13→22:42)
[2022-07-15] MEDS ORDERED: ENOXAPARIN 100 MG/ML SYRINGE SUBCUT SCH (23:00)
[2022-07-15] MEDS: carvediloL 12.5 MG TABLET PO SCH (23:04)
[2022-07-15] MEDS: hydrALAZINE 25 MG TABLET PO SCH (23:04)
[2022-07-15 23:11] LABS: Mucus,Urine Occasional /LPF (Occasional); RBC,Urine 2 /HPF (0-4); Squamous Epithelial Cell,Urine Occasional /HPF (0-10)
[2022-07-15 23:12] LABS: Bilirubin,Urine Negative (Negative); Blood, Urine Negative (Negative); Glucose,Urine (UA) Negative (Negative); Ketones,Urine 40 mg/dL (Negative); Nitrite,Urine Negative (Negative); Protein,Urine 100 mg/dL (Negative); Urine Appearance Clear (Clear); Urine Color Yellow (Yellow); Urine Specific Gravity 1.025 (1.001-1.035); Urine Urobilinogen 0.2 eU/dL (<2.0)
[2022-07-16] MEDS: SODIUM CHLORIDE 0.9% 1,000 ML IV SCH ×3 (01:59→13:59)
[2022-07-16] MEDS: ONDANSETRON 4 MG/2 ML VIAL IV PRN ×2 (02:00→08:52)
[2022-07-16] MEDS ORDERED: diphenhydrAMINE CAP 25 MG CAPSULE PO ONE (05:00)
[2022-07-16 06:50] LABS: Basophils % 0.3 % (0.0-0.8); Eosinophils % 0.1 % (0.00-10.9); Hematocrit 39.8 VOL% (35.7-47.0); Immature Granulocytes % 0.4 %; Immature Granulocytes Absolute 0.03 #; Lymphocytes # 1.8 10*3/uL (1.4-4.0); Lymphocytes % 25.5 % (21.3-54.2); Mean Corpuscular HGB Conc 32.7 GM/DL (32-36); Mean Corpuscular Volume 90.7 FL (87-102); Mean Platelet Volume 10.7 FL (9.6-12.0); Monocytes # 0.8 10*3/uL (0.11-0.8); Monocytes % 10.7 % (1.7-12.7); Platelet Count 230 T/CUMM (130-400); Red Blood Count 4.39 MC/CUMM (3.8-5.5); Red Cell Distribution Width 13.9 % (9.3-17.3)
[2022-07-16 07:14] LABS: Albumin 3.2 G/DL (3.4-5.0); Bilirubin,Total 1.7 MG/DL (0.20-1.00); Calcium 8.5 MG/DL (8.5-10.1); Osmolality,Calculated 285.1 MOS/KG (273-304); Potassium 3.4 MMOL/L (3.5-5.1); Total Protein 6.5 G/DL (6.4-8.2)
[2022-07-16] MEDS: carvediloL 12.5 MG TABLET PO SCH ×2 (08:29→14:31)
[2022-07-16] MEDS: hydrALAZINE 25 MG TABLET PO SCH ×2 (08:29→14:30)
[2022-07-16] MEDS ORDERED: cloNIDine 0.1 MG TABLET PO SCH (09:00)
[2022-07-16] MEDS ORDERED: PANTOPRAZOLE 40 MG TABLET PO SCH (09:00)
[2022-07-16] MEDS ORDERED: ASPIRIN CHEW 81 MG TABLET PO SCH (09:00)
[2022-07-16] MEDS ORDERED: methylPREDNISolone SOD SUC 40 MG/1 ML VIAL IV ONE (14:21)
[2022-07-16] MEDS ORDERED: MECLIZINE 25 MG TABLET PO ONE (14:21)
[2022-07-16 16:06] VITALS: BP 179/107
[2022-07-17] MEDS ORDERED: ENOXAPARIN 40 MG/0.4 ML SYRINGE SUBCUT SCH (09:00)
== END 2022-07-16 18:55 | disposition home or self-care (01) ==
LOC: EDBD → EDUNIT# → N.EDINP 19:20 → N.ED 19:20 → N.2W 23:01
PROVIDERS: ADMIT Internal Medicine; ATTEND Internal Medicine